=== PATIENT | female | born 1995 | race African-American/Black ===

== ENCOUNTER 2016-09-23 14:39 | Observation (INO) | payer SELFPAY ==
--- NOTE | ~2016-09-23 | CN ---
Consultation Report [facility] [address] [place]. [address] NAME: JAIME MOSHER : [birth year] STATUS : ADM Mason PAT#: [id number] AGE: 21 ADM/REG DATE : 09/23/16 MR#: [id number] REPORT SERV DATE: 09/24/16 DICTATED BY: STEFANIE TERRY DATE: 09/24/16 REPORT STATUS : Draft TRANSCRIBED BY: GABBY DATE: 09/24/16 GI CONSULTATION DATE OF CONSULTATION: 09/24/2016 REASON FOR CONSULTATION: Evaluation and management of hematemesis. HISTORY OF PRESENT ILLNESS: Ms Mosher is a 21-year-old female patient admitted on 09/23/2016 with a chief complaint of nausea and vomiting. She states that she was in her typical state of health on Friday; however, she awoke yesterday morning with nausea and vomiting. She states that initially her emesis was bilious to yellow in color. She began to retch. She had multiple episodes of bright red blood in her emesis, as well as some epigastric abdominal pain. She denies diarrhea to me. She has not had a bowel movement since Friday. CT scan was obtained on admission. Noncontrasted exam showed no GI or obstruction. She had an elevated white blood cell count on admission with a history of UTI with pyelonephritis. She has type 2 diabetes. She denies any NSAIDs stating that she is allergic to ibuprofen. She has been n.p.o. after midnight. I have discussed with the patient, we will take her to the GI lab today to perform EGD to further delineate pathology for hematemesis. I did discuss risks, benefits, alternatives, and complications with her to include, but not limited to risk of bleeding, perforation, infection, reaction to medications, as well as cardiac and pulmonary side effects. She is agreeable to proceed. PAST MEDICAL HISTORY: Type 2 diabetes, pyelonephritis, nausea, vomiting, iron deficiency anemia, and urinary tract infections/recurrent tobacco abuse. PAST SURGICAL HISTORY: She denies. SOCIAL HISTORY: Positive for tobacco. Denies alcohol or illicits. FAMILY HISTORY: Noncontributory from a GI standpoint. ALLERGIES: IBUPROFEN AND ZOFRAN. HOME MEDICATIONS: She denies any home medications. REVIEW OF SYSTEMS: A 10-point review of systems has been obtained. Pertinent positives are addressed in the history of present illness. PHYSICAL EXAMINATION: VITAL SIGNS: Temperature 98.3, pulse 56, respirations 20, and blood pressure 88/51. NEUROLOGIC: Reveals a resting female in bed, who awakens to name. She is alert and oriented x3. GENERAL: Cooperative. In no obvious acute distress. Consultation Report [facility] [address] [place]. [address] NAME: JAIME MOSHER : 95 STATUS : ADM Mason PAT#: [id number] AGE: 21 ADM/REG DATE : 09/23/16 MR#: [id number] REPORT SERV DATE: 09/24/16 DICTATED BY: STEFANIE TERRY DATE: 09/24/16 REPORT STATUS : Draft TRANSCRIBED BY: GABBY DATE: 09/24/16 HEAD, EARS, EYES, NOSE, AND THROAT: Anicteric. Pupils are equal, round, and reactive to light and accommodation. Normocephalic and atraumatic. NECK: No JVD. No palpable nodes. LUNGS: Clear anteriorly with normal respiratory effort exhibited. Equal expansion. CARDIOVASCULAR: Regular rate and rhythm. S1, S2. No murmurs, rubs, gallops, S3 or S4 appreciated. ABDOMEN: Soft, very mild tenderness to palpation in the epigastric region. No distention, no rebound, no guarding, and no organomegaly elicited on exam. She has active bowel sounds in all four quadrants. EXTREMITIES: No edema. Normal distal pulses. SKIN: Warm, dry, and intact. PERTINENT LABORATORY DATA: Sodium 143, potassium 3.6, BUN is 8, and creatinine 0.68. White count 13.8, hemoglobin 9.6, hematocrit 29.5, and platelet count of 280. Procalcitonin was less than 0.05. Total bilirubin 1.1. Alkaline phosphatase 63, ALT 17, AST 13, and lipase was 128. ASSESSMENT: 1. Upper gastrointestinal bleed with hematemesis, question if this could be secondary to Monica-Vasquez tears, the patient had multiple episodes of retching. 2. Nausea with vomiting. 3. Leukocytosis/urinary tract infection. 4. Type 2 diabetes. 5. Tobacco abuse. PLAN: 1. EGD today. 2. Continue proton pump inhibitor. 3. Recommend tobacco cessation. 4. Question if she could have a component of gastroparesis. We will follow. YVONNE/GABBY TERRA Pulliam / [id number] CC: Jatin Lam MD
--- NOTE | ~2016-09-23 | EGD ---
EGD REPORT [facility] [address] [address] NAME: OCHOA MOSHER : [birth year] STATUS : ADM Mason PAT#: [id number] AGE: 21 ADM/REG DATE : 09/23/16 MR#: [id number] REPORT SERV DATE: 09/24/16 DICTATED BY: GONZALO RAMEY DATE: 09/24/16 REPORT STATUS : Draft TRANSCRIBED BY: [facility] DATE: 09/24/16 Endoscopy Center Patient Name: Ochoa Mosher Date of : 1995 Attending MD: GONZALO RAMEY MD Procedure Date No Time: 09/24/2016 Procedure: Upper GI endoscopy Indications: Hematemesis Referring MD: SIL RUFFIN MD Medicines: Monitored Anesthesia Care Complications: No immediate complications. Estimated blood loss: None. Procedure: After obtaining informed consent, the endoscope was passed under direct vision. Throughout the procedure, the patient's blood pressure, pulse, and oxygen saturations were monitored continuously. The GIF [id number] was introduced through the mouth, and advanced to the second part of duodenum. The upper GI endoscopy was accomplished without difficulty. The patient tolerated the procedure well. Findings: A small non-bleeding Monica-Vasquez tear with stigmata of recent bleeding was found. The entire examined stomach was normal. The examined duodenum was normal. The cardia and gastric fundus were normal on retroflexion. The exam was otherwise without abnormality. Impression: - Monica-Vasquez tear. - The examination was otherwise normal. Recommendation: - Return patient to hospital rg for ongoing care. - Full liquid diet today. - Use Protonix (pantoprazole) 40 mg PO BID for 6 weeks. Procedure Code(s): --- Professional --- 34927, Esophagogastroduodenoscopy, flexible, transoral; diagnostic, including collection of specimen(s) by brushing or washing, when performed (separate procedure) Diagnosis Code(s): --- Professional --- K22.6, Gastro-esophageal laceration-hemorrhage syndrome K92.0, Hematemesis EGD REPORT [facility] [address] [address] NAME: OCHOA MOSHER : [birth year] STATUS : ADM Mason PAT#: [id number] AGE: 21 ADM/REG DATE : 09/23/16 MR#: [id number] REPORT SERV DATE: 09/24/16 DICTATED BY: GONZALO RAMEY DATE: 09/24/16 REPORT STATUS : Draft TRANSCRIBED BY: [employer] DATE: 09/24/16 CPT copyright 2013 [employer]. All rights reserved. The codes documented in this report are preliminary and upon coder operator review may be revised to meet current compliance requirements. Gonzalo Ramey MD GONZALO RAMEY MD 09/24/2016 10:05 AM This report has been signed electronically. Number of Addenda: 0 Note Initiated On: 09/24/2016 9:45 AM [facility] [address] [address]
--- NOTE | ~2016-09-23 | DS ---
Discharge Summary [facility] [address] [facility] [place]. [address] NAME: JAIME CRAIG : 95 STATUS : DIS Mason PAT#: [id number] AGE: 21 ADM/REG DATE : 09/23/16 MR#: [id number] REPORT SERV DATE: 09/25/16 DICTATED BY: MARY ANNE MURILLO DATE: 09/24/16 REPORT STATUS : Draft TRANSCRIBED BY: GABBY DATE: 09/24/16 ADMISSION DATE: 09/23/2016 DISCHARGE DATE: 09/24/2016 DISCHARGE DIAGNOSES: 1. Hematemesis secondary to Monica-Vasquez tear. 2. Urinary tract infection. 3. Viral gastroenteritis. 4. History of gastric bypass. DISCHARGE MEDICATIONS: Include: 1. Protonix 40 mg p.o. b.i.d. 2. Ciprofloxacin 500 mg p.o. b.i.d. for 6 days. DISPOSITION AND FOLLOWUP: The patient medically stable for discharge. Follow up with primary care physician in 1 week. History and physical per initial assessment. DISCHARGE PHYSICAL EXAMINATION: DISCHARGE VITAL SIGNS: Temperature 98.8, heart rate 62, blood pressure 102/51, respiratory rate 20, O2 saturation 99 on room air. DISCHARGE LABS: WBC of 13.8, hemoglobin 9.6, hematocrit 29.5, platelets 280. Sodium 142, potassium 3.6, chloride 111, bicarb 22, BUN 8, creatinine 0.68, and magnesium 2.1. IMAGING: CT of the abdomen and pelvis, impression: No GI or obstruction is seen. PROCEDURE: Endoscopy. IMPRESSION: Non-bleeding small Monica-Vasquez tear with stigmata of recent bleeding found. Otherwise normal. RECOMMENDATIONS: Full liquid diet for 09/24/2016, then resume regular diet, Protonix 40 mg p.o. b.i.d. for 6 weeks. HOSPITAL COURSE: The patient was admitted for further management of hematemesis. The patient had a day prior to admission started with nausea and vomiting, most likely, a viral gastroenteritis. H and H were monitored closely. The patient had GI consult, further details per GI note. In short, the patient did have an EGD which showed small nonbleeding Monica-Vasquez tear with stigmata of recent bleeding. The patient's H and H stable at discharge, vitals stable. Medically stable to discharge on Protonix 40 mg p.o. b.i.d. for 6 weeks. The patient will continue ciprofloxacin to complete seven day course for urinary tract infection. The patient did not have any further nausea and vomiting. Viral gastroenteritis resolved. Follow up with primary care physician in one week. Instructed to take all medications as described above. Total time for discharge summary; 25 minutes. Discharge Summary [address] [address] NAME: JAIME CRAIG : 95 STATUS : DIS Mason PAT#: [id number] AGE: 21 ADM/REG DATE : 09/23/16 MR#: [id number] REPORT SERV DATE: 09/25/16 DICTATED BY: MARY ANNE MURILLO DATE: 09/24/16 REPORT STATUS : Draft TRANSCRIBED BY: GABBY DATE: 09/24/16 ROBERT/GABBY Jatin Lam MD / [id number] CC: Jatin Lam MD
--- NOTE | ~2016-09-23 | HP ---
History And Physical [address] [address] NAME: JAIME CRAIG : 95 STATUS : ADM Mason PAT#: [id number] AGE: 21 ADM/REG DATE : 09/23/16 MR#: [id number] REPORT SERV DATE: 09/24/16 DICTATED BY: MARY ANNE MURILLO DATE: 09/23/16 REPORT STATUS : Draft TRANSCRIBED BY: MOD[employer] DATE: 09/23/16 DATE OF ADMISSION: 09/23/2016 CHIEF COMPLAINT: Nausea, vomiting, diarrhea, and vomiting blood. HPI: A 21-year-old woman with no significant past medical history other than history of gastric bypass comes into the ED complaining of nausea, vomiting, diarrhea, and abdominal pain for the last two days. The patient reports that initial retching did not produce any vomiting then as she continued to retch she started to notice on day of admission blood in vomit. The patient reports some associated abdominal pain diffusely. Abdominal pain has been constant since two days prior to admission. Describes it as crampy and sharp and diffuse. Nothing has made it worse. Nothing has alleviated it. The patient denies any fevers or chills, cough, melena, hematochezia, orthopnea, chest pain, palpitations, shortness of breath, headache, dizziness, slurred speech, loss of consciousness. The patient was evaluated in the ED and gastric occult vomit was positive for blood. CT of the abdomen without any acute pathology. Hospitalist called for further inpatient management. ALLERGIES: IBUPROFEN AND ZOFRAN. PAST MEDICAL HISTORY: 1. History of gastric bypass. HOME MEDICATIONS: None. SOCIAL HISTORY: Denies any alcohol, tobacco. The patient does report positive for marijuana. FAMILY HISTORY: Noncontributory. PHYSICAL EXAMINATION: VITAL SIGNS: Temperature 97, blood pressure 120/61, respiratory rate 16, O2 saturation 98 on room air. Heart rate 63. GENERAL: No acute distress. HEENT: EOMI, PERRLA, nonicteric sclerae. Nonerythematous pharynx. NECK: Supple. No JVD. No lymphadenopathy. RESPIRATORY: Clear to auscultation bilaterally. No wheezes, rhonchi, or crackles. CARDIOVASCULAR: Regular rate and rhythm. No murmurs, rubs, or gallops. ABDOMEN: Tender to palpation diffusely. Soft, nondistended, no rebound, no guarding, no peritoneal signs. EXTREMITIES: No cyanosis and moves all. NEUROLOGIC: Alert oriented x3, nonfocal. LABS: WBC of 18.6, hemoglobin 12.4, hematocrit 37.9, platelets 372. Sodium 141, potassium 3.8, chloride 106, bicarb 23, lactate 1.8, BUN 11, creatinine 0.88. Glucose 133, magnesium 2.1. Troponin less than 0.02. Lipase 128, GENNA urine negative. Urinalysis hazy with trace leukocytes and positive nitrites. History And Physical [address] [address] NAME: JAIME CRAIG : [birth year] STATUS : ADM Mason PAT#: [id number] AGE: 21 ADM/REG DATE : 09/23/16 MR#: [id number] REPORT SERV DATE: 09/24/16 DICTATED BY: MARY ANNE MURILLO DATE: 09/23/16 REPORT STATUS : Draft TRANSCRIBED BY: GABBY DATE: 09/23/16 IMAGING: CT of the abdomen and pelvis. Impression, no GI or obstruction is seen. ASSESSMENT: 1. Nausea, vomiting, and diarrhea. Differential diagnosis is viral gastroenteritis. 2. Hematemesis. Differential diagnosis is Monica-Vasquez tear. 3. Urinary tract infection. 4. History of gastric bypass. PLAN: Patient will be admitted to medical telemetry bed, aggressive IV fluids. Consult GI. H and H q.6 hours. Placed on a PPI drip. Start Rocephin empirically follow urine and blood cultures. Antiemetics and appropriate pain control. Hold pain medications for systolic less than 100. Check stool for ova and parasites, and C. diff toxin. Transfuse to keep hemoglobin above 8. Check procalcitonin level. Full liquid diet. Labs in a.m. Further evaluation and management per clinical course. CODE STATUS: Full code. DVT prophylaxis, SCDs. GI prophylaxis PPI and GTT. Total time for history and physical 35 minutes. RLV/GABBY Ramhuy Lam MD / [id number] CC: Jatin Lam MD
[2016-09-23 12:22] LABS: BASOPHILS 0.2 %; BASOPHILS ABSOLUTE 0.04 10/3/uL (0.0-0.16); EOSINOPHILS 0.1 %; EOSINOPHILS ABSOLUTE 0.01 10/3/uL (0.0-0.53); ER CBC TAT 0 Hrs 08 Mins; HEMATOCRIT 37.9 % (36.0-48.0); HEMOGLOBIN 12.4 g/dL (12.0-16.0); IMMATURE GRANULOCYTES 0.3 %; IMMATURE GRANULOCYTES ABSOLUTE 0.05 10/3/uL (0.0-0.11); LYMPHOCYTES 6.5 %; MANUAL DIFF NO %; MEAN CORPUS HGB CONC 32.7 g/dL (32.0-36.0); MEAN CORPUSCULAR HEMOGLOB 26.8 pg (26.0-34.0); MEAN CORPUSCULAR VOLUME 81.9 fL (80-100); MEAN PLATELET VOLUME 10.1 fL (9.2-13.0); MONOCYTES 1.7 %; MONOCYTES ABSOLUTE 0.32 10/3/uL (0.21-1.20); NEUTROPHILS 91.2 %; NEUTROPHILS ABSOLUTE 16.97 10/3/uL (2.02-8.40); PLATELET COUNT 372 10/3/uL (150-400); RBC DISTRIBUTION WIDTH 16.8 % (12.0-16.0); RED CELL COUNT 4.63 10/6/uL (4.0-5.6); WHITE BLOOD CELLS 18.6 10/3/uL (4.5-10.5)
[2016-09-23 12:29] LABS: INTERNATIONAL NORMAL RATI 1.1 UNITS (-)
[2016-09-23 12:40] LABS: ALKALINE PHOSPHATASE 63 U/L (45-117); BUN (BLOOD UREA NITROGEN) 11 MG/DL (6-23); CALCIUM, SERUM 9.1 MG/DL (8.5-10.4); CHEST PAIN PROFILE TAT 0 Hrs 26 Mins; CHLORIDE, SERUM 106 MMOL/L (96-112); CO2 (CARBON DIOXIDE) 23 MMOL/L (24-34); CREATININE 0.88 MG/DL (0.55-1.02); DIRECT BILIRUBIN 0.2 MG/DL (0.0-0.4); GFR AFRICAN AMERICAN 109 ML/MIN (>=60); GFR NON AFRICAN AMERICAN 94 ML/MIN (>=60); GLUCOSE, SERUM 133 MG/DL (60-99); INDIRECT BILIRUBIN(NOT ORDER) 0.9 MG/DL (0.1-0.9); POTASSIUM, SERUM 3.8 MMOL/L (3.5-5.3); SGOT(AST) 13 U/L (5-40); SGPT(ALT) 17 U/L (5-65); SODIUM, SERUM 141 MMOL/L (135-148); TOTAL BILIRUBIN 1.1 MG/DL (0-1.2); TROPONIN I <0.02 NG/ML (<0.05)
[2016-09-23 13:34] LABS: ASCORBIC ACID (UR NOT ORDER) NEG (NEG); BILIRUBIN, URINE NEGATIVE (NEG); ER URINALYSIS TAT 0 Hrs 27 Mins; KETONE, URINE 80 MG/DL (NEG); LEUKOCYTE ESTERASE(NOT OR TRACE (NEG); NITRITE (URINE) POS (NEG); WBC (NOT ORDERED) (RFLEX) 2 (0-5)
[~2016-09-23 14:39] MED LIST: CEFT5 PO; CIP5 PO; MAGOX4 PO; PR25 PO; PRILOSEC40 MG PO; PT DENIES HOME MEDS
[2016-09-23] MEDS ORDERED: *DENIES (15:19)
[2016-09-23 19:30] LABS: HEMOGLOBIN 10.4 g/dL (12.0-16.0)
[2016-09-24 01:21] LABS: HEMATOCRIT 30.1 % (36.0-48.0); HEMOGLOBIN 9.8 g/dL (12.0-16.0)
[2016-09-24 04:15] LABS: BASOPHILS 0.2 %; BASOPHILS ABSOLUTE 0.03 10/3/uL (0.0-0.16); EOSINOPHILS 0.7 %; EOSINOPHILS ABSOLUTE 0.09 10/3/uL (0.0-0.53); HEMATOCRIT 29.5 % (36.0-48.0); HEMOGLOBIN 9.6 g/dL (12.0-16.0); IMMATURE GRANULOCYTES 0.2 %; IMMATURE GRANULOCYTES ABSOLUTE 0.03 10/3/uL (0.0-0.11); LYMPHOCYTES 29.3 %; LYMPHOCYTES ABSOLUTE 4.04 10/3/uL (0.67-4.30); MEAN CORPUS HGB CONC 32.5 g/dL (32.0-36.0); MEAN CORPUSCULAR HEMOGLOB 26.7 pg (26.0-34.0); MEAN CORPUSCULAR VOLUME 81.9 fL (80-100); MEAN PLATELET VOLUME 9.7 fL (9.2-13.0); MONOCYTES 5.1 %; NEUTROPHILS 64.5 %; PLATELET COUNT 280 10/3/uL (150-400); RBC DISTRIBUTION WIDTH 16.7 % (12.0-16.0); WHITE BLOOD CELLS 13.8 10/3/uL (4.5-10.5)
[2016-09-24 04:16] LABS: MANUAL DIFF NO %
[2016-09-24 04:30] LABS: BUN (BLOOD UREA NITROGEN) 8 MG/DL (6-23); CHLORIDE, SERUM 111 MMOL/L (96-112); CO2 (CARBON DIOXIDE) 22 MMOL/L (24-34); CREATININE 0.68 MG/DL (0.55-1.02); GFR AFRICAN AMERICAN 145 ML/MIN (>=60); GFR NON AFRICAN AMERICAN 125 ML/MIN (>=60); POTASSIUM, SERUM 3.6 MMOL/L (3.5-5.3); SODIUM, SERUM 143 MMOL/L (135-148)
[2016-09-24 04:33] LABS: CALCIUM, SERUM 8.1 MG/DL (8.5-10.4); GLUCOSE, SERUM 90 MG/DL (60-99)
[2016-09-24] MEDS ORDERED: CIP5 PO (13:38)
[2016-09-24] MEDS ORDERED: PROTONIX PO (13:38)
== END 2016-09-24 13:44 | disposition home or self-care (01) ==
LOC: ER 14:39 → CDU1 15:58
PROVIDERS: Emergency Medicine; Internal Medicine
PROC: 0DJ08ZZ Inspection of Upper Intestinal Tract, Via Natural or Artificial Opening Endoscopic (ICD-10-PCS; principal; 2016-09-23)
DX: K22.6 Gastro-esophageal laceration-hemorrhage syndrome (principal); E11.9 Type 2 diabetes mellitus without complications; N39.0 Urinary tract infection, site not specified; Z88.1 Allergy status to other antibiotic agents; Z98.84 Bariatric surgery status
CPT/HCPCS: 36415; 74176; 80048; 80076; 81001; 82962; 83605; 83690; 83735; 84145; 84484; 84703; 85014; 85018; 85025; 85610; 85730; 86850; 86900; 86901; 87040; 93005; 96374; 96375; 96376; 99285; A9270-GY; C9113; G0378; J1170; J2550

== ENCOUNTER 2016-11-17 09:55 | Emergency (ER) | payer SELFPAY ==
[~2016-11-17 09:55] MED LIST changes: +*DENIES; +PROTONIX PO
[2016-11-17 10:56] LABS: BASOPHILS 0.2 %; BASOPHILS ABSOLUTE 0.04 10/3/uL (0.0-0.16); EOSINOPHILS 0 %; IMMATURE GRANULOCYTES 0.3 %; IMMATURE GRANULOCYTES ABSOLUTE 0.07 10/3/uL (0.0-0.11); LYMPHOCYTES 5.1 %; LYMPHOCYTES ABSOLUTE 1.05 10/3/uL (0.67-4.30); MEAN CORPUSCULAR HEMOGLOB 26.9 pg (26.0-34.0); MEAN CORPUSCULAR VOLUME 81.5 fL (80-100); MEAN PLATELET VOLUME 10.2 fL (9.2-13.0); MONOCYTES 3.1 %; MONOCYTES ABSOLUTE 0.64 10/3/uL (0.21-1.20); NEUTROPHILS 91.3 %; NEUTROPHILS ABSOLUTE 18.64 10/3/uL (2.02-8.40); PLATELET COUNT 362 10/3/uL (150-400); RBC DISTRIBUTION WIDTH 15.6 % (12.0-16.0); RED CELL COUNT 4.32 10/6/uL (4.0-5.6)
[2016-11-17 10:57] LABS: ER CBC TAT 0 Hrs 08 Mins; HEMATOCRIT 35.2 % (36.0-48.0); HEMOGLOBIN 11.6 g/dL (12.0-16.0); MANUAL DIFF NO %; WHITE BLOOD CELLS 20.4 10/3/uL (4.5-10.5)
[2016-11-17 11:11] LABS: A/G RATIO 1.1 (0.7-1.9); ALBUMIN 4.1 G/DL (3.5-5.0); ALKALINE PHOSPHATASE 68 U/L (45-117); BUN (BLOOD UREA NITROGEN) 13 MG/DL (6-23); CALCIUM, SERUM 9.5 MG/DL (8.5-10.4); CHLORIDE, SERUM 106 MMOL/L (96-112); CO2 (CARBON DIOXIDE) 26 MMOL/L (24-34); CREATININE 0.91 MG/DL (0.55-1.02); GFR AFRICAN AMERICAN 105 ML/MIN (>=60); GFR NON AFRICAN AMERICAN 90 ML/MIN (>=60); GLOBULIN 3.8 G/DL (2.5-4.1); GLUCOSE, SERUM 129 MG/DL (60-99); POTASSIUM, SERUM 3.7 MMOL/L (3.5-5.3); SGOT(AST) 18 U/L (5-40); SGPT(ALT) 18 U/L (5-65); SODIUM, SERUM 141 MMOL/L (135-148); TOTAL BILIRUBIN 0.7 MG/DL (0-1.2); TOTAL PROTEIN 7.9 G/DL (6.0-8.5)
[2016-11-17 11:47] LABS: ASCORBIC ACID (UR NOT ORDER) NEG (NEG); BILIRUBIN, URINE NEGATIVE (NEG); ER URINALYSIS TAT 0 Hrs 18 Mins; KETONE, URINE NEGATIVE (NEG); LEUKOCYTE ESTERASE(NOT OR NEG (NEG); NITRITE (URINE) POS (NEG); WBC (NOT ORDERED) (RFLEX) 2 (0-5)
== END 2016-11-17 12:06 | disposition home or self-care (01) ==
LOC: ER 09:55
PROVIDERS: Physician Assistant
DX: R11.2 Nausea with vomiting, unspecified (principal); R10.84 Generalized abdominal pain; D72.829 Elevated white blood cell count, unspecified; D64.9 Anemia, unspecified; F17.200 Nicotine dependence, unspecified, uncomplicated; Z88.8 Allergy status to other drugs, medicaments and biological substances; Z79.899 Other long term (current) drug therapy
CPT/HCPCS: 80053; 81001; 83690; 84703; 85025; 96374; 99284; J2405; J2765